=== PATIENT | female | born 1990 | race Asian ===

== ENCOUNTER 2024-04-20 05:55 | Inpatient (IN) | payer OTHER ==
[2024-04-20] MEDS: ELECTROLYTE-148 SOLN 500 ML IV SCH (06:20)
[2024-04-20 06:36] VITALS: BMI 36.6
[2024-04-20 06:43] LABS: EOS % 0.6 % (0-4.5); HEMATOCRIT 31.7 % (32.4-45.2); HEMOGLOBIN 10.4 GM/dL (10.7-15.3); MCH 26.4 pg (25.7-33.7); MCHC 32.9 g/dl (32.0-36.0); MEAN CELL VOLUME 80.3 fl (80-96); MONO % 7.2 % (3.8-10.2); NEUT % 71.2 % (42.8-82.8); PLATELET COUNT 239 10^3/uL (134-434); RBC 3.94 M/mm3 (3.60-5.2); RDW 20.1 % (11.6-15.6); WHITE BLOOD COUNT 10.5 K/mm3 (4.0-10.0)
[2024-04-20 07:01] LABS: CALCIUM 8.5 mg/dL (8.5-10.1)
[2024-04-20 07:02] LABS: BLOOD UREA NITROGEN 9.6 mg/dL (7-18)
[2024-04-20 07:03] LABS: INR 0.92 (0.83-1.09); PROTHROMBIN TIME (PATIENT) 10.6 SEC (9.7-13.0)
[2024-04-20 07:05] LABS: ACTIVATED PTT 28.2 SECONDS (25.2-36.5); CREATININE 0.5 mg/dL (0.55-1.3)
[2024-04-20] MEDS: CITRIC ACID/SODIUM CITRATE 30 ML UNIT-DOSE CUP PO ONE (07:30)
[2024-04-20] MEDS ORDERED: OXYTOCIN 30 UNITS in 0.9% NS 30 UNIT/500 ML INFUS.BAG IVPB ONE (07:54)
[2024-04-20] MEDS ORDERED: morphine SULFATE/PF 1 MG/2 ML (2cc Syringe - QUVA) ONE (07:57)
[2024-04-20] MEDS ORDERED: FENTANYL CITRATE/PF 50 MCG/ML VIAL ONE (07:57)
[2024-04-20 08:09] LABS: ALBUMIN 2.5 g/dl (3.4-5.0)
[2024-04-20 08:13] LABS: BILIRUBIN,DIRECT 0.1 mg/dL (0.0-0.2)
[2024-04-20] MEDS ORDERED: ceFAZolin SODIUM 1 GM VIAL ONE (08:13)
[2024-04-20 08:14] LABS: BILIRUBIN,TOTAL 0.4 mg/dL (0.2-1); TOT PROT 5.7 g/dl (6.4-8.2)
[2024-04-20] MEDS ORDERED: OXYTOCIN 10 UNITS/ML VIAL ONE ×2 (08:25→08:27)
[2024-04-20] MEDS ORDERED: METHYLERGONOVINE MALEATE 0.2 MG/1 ML AMP IM PRN (09:05)
[2024-04-20] MEDS ORDERED: IBUPROFEN 800 MG/8 ML IJ IVPB PRN (09:06)
[2024-04-20] MEDS: OXYTOCIN 20 UNITS in 0.9% NS 20 UNIT/1,000 ML INFUS.BAG IV SCH (09:45)
[2024-04-20 09:49] LABS: CORD BASE EXCESS -3.8 mmol/L (0-2); CORD HCO3 21.3 mmHg (20-29); CORD pH 7.355 (7.14-7.44)
[2024-04-20 09:49] LABS: HIV INTERPRETATION NEGATIVE (NEGATIVE)
[2024-04-20] MEDS ORDERED: OXYTOCIN 20 UNITS in 0.9% NS 20 UNIT/1,000 ML INFUS.BAG IV ONE (09:54)
[2024-04-20 10:00] LABS: CORD HCO3 22.9 mmHg (20-29); CORD PCO2 56.2 mmHg (30-78); CORD pH 7.228 (7.14-7.44)
[2024-04-20] MEDS: CEFAZOLIN SODIUM 2 GM in DEXTROSE 5%-WATER 100 ML IVPB SCH (10:40)
[2024-04-20] MEDS: ELECTROLYTE-148 SOLN 1,000 ML IV SCH (10:55)
[2024-04-20] MEDS ORDERED: CEFAZOLIN SODIUM 2 GM VIAL ONE (10:58)
[2024-04-20] MEDS ORDERED: ONDANSETRON 4 MG/2 ML VIAL IVPUSH PRN (19:38)
[2024-04-20] MEDS ORDERED: oxyCODONE HCL 5 MG TABLET PO PRN (21:05)
[2024-04-20] MEDS: IBUPROFEN 600 MG TABLET (FP) PO PRN (23:49)
[2024-04-20] MEDS: SIMETHICONE 80 MG TAB.CHEW (FP) PO PRN (23:49)
[2024-04-21] MEDS: ACETAMINOPHEN 325 MG TABLET (FP) PO PRN (01:27)
[2024-04-21 08:19] LABS: BASO % 0.8 % (0-2.0); EOS % 0.7 % (0-4.5); HEMATOCRIT 27.8 % (32.4-45.2); HEMOGLOBIN 9.1 GM/dL (10.7-15.3); LYMPH % 18.2 % (8-40); MCH 26.4 pg (25.7-33.7); MCHC 32.8 g/dl (32.0-36.0); MEAN CELL VOLUME 80.3 fl (80-96); MEAN PLT VOLUME 9.1 fl (7.5-11.1); MONO % 6.7 % (3.8-10.2); NEUT % 73.6 % (42.8-82.8); PLATELET COUNT 206 10^3/uL (134-434); RBC 3.46 M/mm3 (3.60-5.2); RDW 20.5 % (11.6-15.6); WHITE BLOOD COUNT 9.2 K/mm3 (4.0-10.0)
[2024-04-21 09:43] LABS: ANISOCYTOSIS 2+; MACROCYTOSIS 1+
[2024-04-21 09:44] LABS: PLATELET ESTIMATE ADEQUATE
[2024-04-21] MEDS: ENOXAPARIN NA (PORCINE) 40 MG/0.4 ML DISP.SYRIN SQ SCH (10:44)
[2024-04-21] MEDS: oxyCODONE HCL 5 MG TABLET PO PRN (21:03)
[2024-04-21] MEDS: BISACODYL 10 MG SUPP.RECT RC PRN (21:05)
[2024-04-23 07:41] LABS: BASO % 0.7 % (0-2.0); EOS % 2.5 % (0-4.5); HEMATOCRIT 27.8 % (32.4-45.2); HEMOGLOBIN 9.2 GM/dL (10.7-15.3); LYMPH % 19.9 % (8-40); MCH 26.8 pg (25.7-33.7); MCHC 32.9 g/dl (32.0-36.0); MEAN CELL VOLUME 81.3 fl (80-96); MEAN PLT VOLUME 8.5 fl (7.5-11.1); MONO % 7.5 % (3.8-10.2); NEUT % 69.4 % (42.8-82.8); PLATELET COUNT 252 10^3/uL (134-434); RBC 3.42 M/mm3 (3.60-5.2); RDW 20.3 % (11.6-15.6); WHITE BLOOD COUNT 9.3 K/mm3 (4.0-10.0)
[2024-04-23 11:57] VITALS: BP 137/92; PULSE 82; RESP 17; TEMP 97.6
== END 2024-04-23 15:40 | disposition home or self-care (01) | DRG 788 ==
LOC: JLDR 05:55 → J3W 11:25
PROVIDERS: ADMIT Obstetrics & Gynecology; ATTEND Obstetrics & Gynecology
PROC: 10D00Z1 Extraction of Products of Conception, Low, Open Approach (ICD-10-PCS; principal; 2024-04-20)
DX: O13.4 Gestational [pregnancy-induced] hypertension without significant proteinuria, complicating childbirth (principal); O69.81X0 Labor and delivery complicated by cord around neck, without compression, not applicable or unspecified; Z3A.38 38 weeks gestation of pregnancy; Z37.0 Single live birth
CPT/HCPCS: 36415; 36600; 80048; 80076; 82803; 85025; 85610; 85730; 86780; 86850; 86900; 86901; 87389; 88307-TC; 94010